=== PATIENT | female | born 1995 | race Hispanic/Latino ===

== ENCOUNTER 2025-03-23 09:05 | Emergency (ER) | payer OTHER ==
[2025-03-23] MEDS ORDERED: Dexamethasone 10 MG/ML VIAL ONE (11:44)
[2025-03-23] MEDS ORDERED: Ketorolac Tromethamine 30 MG (1 mL) VIAL ONE (11:44)
== END 2025-03-23 23:35 | disposition home or self-care (01) ==
LOC: CSHERS 09:05
DX: J02.9 Acute pharyngitis, unspecified (principal); M26.602 Left temporomandibular joint disorder, unspecified
CPT/HCPCS: 70486; 87081; 87426; 87430; 96372; J1100; J1885